=== PATIENT | female | born 1970 | race Two or more races ===

== ENCOUNTER 2025-01-17 18:40 | Inpatient (IN) | payer MEDICAID, OTHER ==
[~2025-01-17] VITALS: Ht 165.1 cm; Wt 80.0 kg
--- NOTE | 2025-01-17 19:03 | ED.PDOC ---
HPI Comments 54 y/o overweight F presents with c/o intermittent, left-sided chest pain for the past 3 days. Patient is a Faroese speaker and a poor historian. Chest pain is"sharp" and "pressure-like" in quality that occurs whenever taking a deep breath or bending forward. Patient states on pain also radiating to her left-arm. She endorses no recent stressors, strenuous activities, sick contact, travel, or additional significant history at time of initial assessment. Patient denies any shortness of breath, nausea, vomiting, fever, chills, or other associated symptoms or modifying factors at this time. Vitals: temperature of 97.9F, pulse rate of 83, respiratory rate of 16, blood pressure of 134/90, and a SpO2 of 95%RA Past medical history: HTN Past surgical history: cholecystectomy HPI: Poor Historian. REVIEW OF SYSTEMS: CONSTITUTIONAL: Denies acute: fever, diaphoresis, chills, generalized weakness. HEAD: Denies acute: headache, photophobia Eyes: Denies acute: Double vision, vision loss, eye pain, eye discharge. EARS: Denies acute: tinnitus, hearing loss, ear discharge, ear pain, THROAT: Denies acute: sore throat, swelling, difficulty swallowing , pain with swallowing, change in voice. NECK: Denies acute: neck pain, neck swelling, stiff neck. HEART: Denies acute : palpitations, LUNGS: Denies acute: SOB, wheezing, cough, hemoptysis ABDOMEN: Denies acute: abdominal pain, Nausea, Vomiting, diarrhea, melena , hematemesis, hematochezia SKIN: Denies acute: rash, redness, lesions, itchiness. EXTREMITIES: Denies acute: calf pain, numbness, tingling, weakness, denies pain in extremity. Denies acute: Low back pain. Neuro: Denies acute: focal neurological deficit, motor or sensory focal neurological deficit, tremors, seizure like activity, confusion, dizziness, change in mental status, loss of bowel or bladder function, cauda equina like symptoms. : Denies acute: dysuria, hematuria, flank pain, increase in urinary frequency. PSYCH: Denies acute: hallucination, suicidal ideation, homicidal ideation. FEMALE: Denies acute: abnormal vaginal bleeding, foul odor, unusual discharge. PHYSICAL EXAM: General: ----no----acute distress, awake and alert. Head: normocephalic, atraumatic. Neck: supple, trachea is midline, no swelling. Throat: Normal phonation. Eyes:, no erythema, no purulent discharge, no proptosis, no icterus. Heart: regular rate, regular rhythm, no significant murmur appreciated. Lungs: no apparent respiratory distress, Able to speak in full sentences. No wheezing, no rhonchi, no crackles. No stridors Clear to auscultation bilaterally. Abdomen: non tender to palpation, non distended, soft, no guarding, no rebound, + bowel sounds. Neuro: Awake, Alert, oriented to name, self, situation, follows commands GCS=15. Speech is normal. Skin: no petechia, no purpura, no cyanosis, non-pale, not jaundice. Lower extremities: --no - Pitting edema no deformity, no focal swelling, no calf TTP. Makes eye contact. moves all four extremities. Face: no apparent facial droop. Ambulating in the ED independently. ED COURSE: Chief Complaint: Chest Pain Time Seen by MD: 18:50 Primary Care Provider: unknown Reviewed Notes: Nurses Notes, Medications, Allergies Allergies: Coded Allergies: NO KNOWN ALLERGIES (Unverified , 01/17/25) Home Meds Reported Medications Losartan Potassium (Losartan Potassium) 25 Mg Tab, 1 TAB PO DAILY 01/18/25 Terbinafine HCl (Terbinafine Hydrochloride) 250 Mg Tab, 1 TAB PO DAILY 01/18/25 Rosuvastatin Calcium (Rosuvastatin Calcium) 10 Mg Tab, 1 TAB PO DAILY 01/18/25 Information Source: Patient Mode of Arrival: Ambulatory Past Medical History PAST MEDICAL HISTORY: HTN Surgical History: Cholecystectomy GLASSWARE VERIFIER History: Denies all GLASSWARE VERIFIER Hx Family History Family History: Unknown Social History Smoker: Non-Smoker Alcohol: Denies ETOH Use Drugs: Denies Drug Use Lives In: Home Was a procedure done? Was a procedure done?: No CP Differential Dx Differential Diagnosis: N/A Differential Diagnosis: Other (Ddx include but not limitied to gastritis, musculoskeletal pain, radiculopathy, atypical chest pain, dissection, aneurysm, ACS, unstable angina, hiatal hernia, GERD, anxiety, costochondritis, PE, pneumothroax, neoplasm, cardiac ischemia, drug abuse, anemia.) X-Ray, Labs, Meds, VS Vital Signs Date Time Temp Pulse Resp B/P (MAP) Pulse Ox O2 Delivery O2 Flow Rate FiO2 01/17/25 18:58 69 01/17/25 18:52 97.9 83 16 134/90 (105) 95 97.9 Lab Test 01/17/25 20:03 01/17/25 19:01 Range/Units Troponin I High Sensitivity < 3 L < 3 L </=34 ng/L White Blood Count 8.6 4.4-10.8 10^3/uL Red Blood Count 3.88 L 4.0-5.20 10^6/uL Hemoglobin 12.0 L 12.2-16.2 g/dL Hematocrit 35.2 L 36.0-46.0 % Mean Corpuscular Volume 90.7 80.0-100.0 fL Mean Corpuscular Hemoglobin 30.8 28.0-32.0 pg Mean Corpuscular Hemoglobin Concent 34.0 32.0-36.0 g/dL Red Cell Distribution Width 14.7 H 11.8-14.3 % Platelet Count 188 140-450 10^3/uL Mean Platelet Volume 7.6 6.9-10.8 fL Neutrophils (%) (Auto) 62.2 37.0-80.0 % Lymphocytes (%) (Auto) 30.4 10.0-50.0 % Monocytes (%) (Auto) 6.5 0.0-12.0 % Eosinophils (%) (Auto) 0.3 0.0-7.0 % Basophils (%) (Auto) 0.6 0.0-2.0 % Neutrophils # (Auto) 5.4 1.6-8.6 10 ^3/uL Lymphocytes # (Auto) 2.6 0.4-5.4 10 ^3/uL Monocytes # (Auto) 0.6 0-1.3 10 ^3/uL Eosinophils # (Auto) 0 0-0.8 10 ^3/uL Basophils # (Auto) 0 0-0.2 10 ^3/uL Nucleated Red Blood Cells 0.0 % Sodium Level 140 136-145 mmol/L Potassium Level 4.1 3.5-5.1 mmol/L Chloride Level 106 98-107 mmol/L Carbon Dioxide Level 29 20-31 mmol/L Anion Gap 5 5-15 Blood Urea Nitrogen 19 9-23 mg/dL Creatinine 0.84 0.550-1.02 mg/dL Glomerular Filtration Rate Calc 82 >90 mL/min BUN/Creatinine Ratio 22.6 H 10.0-20.0 Serum Glucose 85 74-106 mg/dL Calcium Level 9.2 8.7-10.4 mg/dL Total Bilirubin 0.5 0.2-1.0 mg/dL Aspartate Amino Transferase (AST) 23 13-40 U/L Alanine Aminotransferase (ALT) 36 7-40 U/L Alkaline Phosphatase 118 H 46-116 U/L Total Protein 6.2 5.7-8.2 g/dL Albumin 4.0 3.2-4.8 g/dL Triglycerides Level 95 < 150 mg/dL Cholesterol Level 130 < 200 mg/dL LDL Cholesterol 49 < 100 mg/dL HDL Cholesterol 61 H 40-59 mg/dL Thyroid Stimulating Hormone (TSH) 2.00 0.55-4.78 uIU/mL Current Medications Medications (Trade) Dose Ordered Sig/Dayne Route Start Time Stop Time Status Last Admin Aspirin (Ecotrin Enteric Coated Tablet) 325 mg ONCE ONCE PO 01/17/25 19:00 01/17/25 19:01 DC 01/17/25 22:30 PATIENT: YULIET BARONT: [id number]: [id number] : 1970 LOC: ER ROOM / BED: / AGE / SEX: 54 / F ADM STATUS: REG ER SERVICE 54 ORDERING PHYSICIAN: GOVIND SOL DO PROCEDURE(s): CXRP - CHEST PORTABLE REASON: cp ORDER NUMBER(s): [id number], ACCESSION NUMBER(s): [id number] CHEST RADIOGRAPH Indication: cp Technique: Single frontal view of the chest was obtained COMPARISON: None FINDINGS: Lines and Tubes: None Lungs: Clear Pleura: No effusion. No pneumothorax. Cardiomediastinal contours: Unremarkable Bones: Unremarkable IMPRESSION: 1. No acute disease. ATED BY: MARIEL BENITEZ MD DICTATED DATE/TIME: 01/17/251932 SIGNED BY: MARIEL BENITEZ MD SIGNED DATE/TIME: 01/17/251932 Time of 1ST Reevaluation: 19:20 Reevaluation 1ST: Unchanged Patient Education/Counseling: Diagnosis, Treatment Family Education/Counseling: No Family Present Comments Patient presented with the above HPI.---chest pain---workup was initiated. patient was found with the above mentioned diagnosis. the following medications were ordered: please refer to order lists of meds and tests obtained by myself Dr. Sol. Patient ED course and VS have been stabilized. Patient has been reassessed in the ED and remained in a stable condition. Pertinent incidental findings were discussed with the patient and/or family. Patient/family voices understanding and is agreeable with plan. Patient has been observed in the ED adequate length of time to insure imp rovement/stability. Escalation of care considered: Consideration of escalation to observation or admission Patient was ADMITTED to the medicine team for further evaluation and treatment of their presentation. All the reports of any imaging studies that were ordered by myself were reviewed by myself. Departure 1 Departure Time of Disposition: 20:13 Impression: Primary Impression: Chest pain Disposition: ADMITTED INPATIENT Admit to: Tele Condition: Guarded Discharged With: Self Critical Care Note Critical Care Time?: No Heart Score Heart Score: Heart Score Response (Comments) Value History Slightly Suspicious 0 EKG Normal 0 Age 45-64 1 Risk Factors 1 or 2 risk factors 1 Troponin Normal limit 0 Total 2 I personally scribed for SONAM GILL MD ([email or web address]) on 01/17/25 at 19:03. Electronically submitted by Rahul Clifford ([email or web address]). I personally scribed for GOVIND SOL DO ([email or web address]) on 01/17/25 at 22:59. Electronically submitted by Mike Ayers ([email or web address]). SONAM GILL MD Jan 17, 2025 19:03 GOVIND SOL DO Jan 17, 2025 19:08
[2025-01-17 19:16] LABS: Basophils # (auto) 0 10 ^3/uL (0-0.2); Basophils % (auto) 0.6 % (0.0-2.0); Eosinophils # (auto) 0 10 ^3/uL (0-0.8); Eosinophils % (auto) 0.3 % (0.0-7.0); Hematocrit 35.2 % (36.0-46.0); Lymphocytes # (auto) 2.6 10 ^3/uL (0.4-5.4); Lymphocytes % (auto) 30.4 % (10.0-50.0); Mean Corpuscular Hemoglobin 30.8 pg (28.0-32.0); Mean Corpuscular Volume 90.7 fL (80.0-100.0); Monocytes # (auto) 0.6 10 ^3/uL (0-1.3); Monocytes % (auto) 6.5 % (0.0-12.0); Neutrophils # (auto) 5.4 10 ^3/uL (1.6-8.6); Neutrophils % (auto) 62.2 % (37.0-80.0); Platelet Count (auto) 188 10^3/uL (140-450); Red Blood Cells 3.88 10^6/uL (4.0-5.20); Red Cell Distribution Width 14.7 % (11.8-14.3); White Blood Cell 8.6 10^3/uL (4.4-10.8)
--- NOTE | 2025-01-17 19:35 | DVH ---
CHEST RADIOGRAPH Indication: cp Technique: Single frontal view of the chest was obtained COMPARISON: None FINDINGS: Lines and Tubes: None Lungs: Clear Pleura: No effusion. No pneumothorax. Cardiomediastinal contours: Unremarkable Bones: Unremarkable IMPRESSION: 1. No acute disease.
[2025-01-17 19:37] LABS: Alanine Aminotransferase 36 U/L (7-40); Anion Gap 5 (5-15); Aspartate Aminotransferase 23 U/L (13-40); BUN/Creatinine Ratio 22.6 (10.0-20.0); Bilirubin, Total 0.5 mg/dL (0.2-1.0); Blood Urea Nitrogen 19 mg/dL (9-23); Calcium 9.2 mg/dL (8.7-10.4); Carbon Dioxide 29 mmol/L (20-31); Chloride 106 mmol/L (98-107); Glucose 85 mg/dL (74-106); Potassium 4.1 mmol/L (3.5-5.1); Sodium 140 mmol/L (136-145); Total Protein 6.2 g/dL (5.7-8.2)
[2025-01-17 19:38] LABS: Alkaline Phosphatase 118 U/L (46-116)
[2025-01-17] MEDS ORDERED: ONDANSETRON HCL 4 MG/2 ML VIAL IV PRN (22:00)
[2025-01-17] MEDS ORDERED: NITROGLYCERIN 0.4 MG SL TAB SL PRN (22:00)
[2025-01-17] MEDS ORDERED: MORPHINE SULFATE INJ 2 MG/ml SYRG IV PRN (22:00)
[2025-01-17 22:14] VITALS: PULSE 78; RESP 17; O2SAT 97
[2025-01-17 22:20] LABS: Triglycerides 95 mg/dL (< 150)
[2025-01-17 22:21] LABS: LDL Cholesterol 49 mg/dL (< 100)
[2025-01-17 22:22] LABS: Cholesterol 130 mg/dL (< 200)
[2025-01-17] MEDS: NITROGLYCERIN 0.4 MG SL TAB SL ONE (22:25)
[2025-01-17] MEDS: ATORVASTATIN 20 MG TAB PO SCH (22:30)
[2025-01-17] MEDS: ASPirin-EC 325mg tab PO ONE (22:30)
[2025-01-17 22:40] LABS: HDL Cholesterol 61 mg/dL (40-59)
[2025-01-18] VITALS (9 sets, daily range): BP systolic 114–119; BP diastolic 8–79; PULSE 60–77; RESP 16–20; TEMP 97.9–98.9; O2SAT 94–98
--- NOTE | 2025-01-18 00:15 | DVHHP2 ---
History of Present Illness Reason for Visit: Chest pain History of Present Illness 54-year-old female presents for evaluation of chest pain. Patient endorses a three day history of left-sided pressure-like nonradiating chest pain with associated shortness for breath. No nausea or vomiting. Past Medical History Hypertension and dyslipidemia Past Surgical History Cholecystectomy Family History Noncontributory Smoke: No ALCOHOL: none Drugs: None Lives: with Family Review of Systems Review of Systems Review of systems are currently negative otherwise addressed in HPI. Allergies: Coded Allergies: NO KNOWN ALLERGIES (Unverified , 01/17/25) Medications Current Medications Medications Dose Ordered Sig/Dayne Route Start Time Stop Time Status Last Admin Dose Admin Aspirin 81 mg DAILY PO 01/18/25 10:00 Losartan Potassium 25 mg DAILY PO 01/18/25 10:00 Atorvastatin Calcium 10 mg HS PO 01/17/25 22:00 01/17/25 22:30 10 MG Ondansetron HCl 4 mg Q4HP PRN IV 01/17/25 22:00 Acetaminophen 650 mg Q6HP PRN PO 01/17/25 22:00 Nitroglycerin 0.4 mg Q5MINP PRN SL 01/17/25 22:00 Morphine Sulfate 2 mg Q30M PRN IV 01/17/25 22:00 Exam Vital Signs Vital Signs Date Time Temp Pulse Resp B/P (MAP) Pulse Ox O2 Delivery O2 Flow Rate FiO2 01/17/25 22:14 78 17 97 Room Air* 0 21 01/17/25 22:12 98.6 148/88 (108) 98.6 Exam Gen: 54-year-old female in no apparent distress. Skin: Warm, dry, normal color and texture, no rash. HEENT: Normocephalic atraumatic, mucous membranes moist and pink. Neck: Cervical and supraclavicular nodes normal without enlargement, trachea is midline, thyroid gland is normal without masses. Pulmonary: Clear to auscultation and percussion bilaterally. Cardiac: Regular rate and rhythm. No murmur Abdomen: Soft, nontender, nondistended, bowel sounds present all 4 quadrants, no guarding, no rigidity, no organomegaly. Extremities: No cyanosis, clubbing, no edema Neuro: Cranial nerves II through XII grossly intact, normal affect and speech, no focal motor deficits. Labs/Xrays AGE / SEX: 54 / F ADM STATUS: REG ER SERVICE [id number] ORDERING PHYSICIAN: GOVIND SOL DO PROCEDURE(s): CXRP - CHEST PORTABLE REASON: cp ORDER NUMBER(s): [id number], ACCESSION NUMBER(s): [id number] CHEST RADIOGRAPH Indication: cp Technique: Single frontal view of the chest was obtained COMPARISON: None FINDINGS: Lines and Tubes: None Lungs: Clear Pleura: No effusion. No pneumothorax. Cardiomediastinal contours: Unremarkable Bones: Unremarkable IMPRESSION: 1. No acute disease. Labs Test 01/17/25 21:50 01/17/25 19:01 Range/Units Troponin I High Sensitivity < 3 L </=34 ng/L White Blood Count 8.6 4.4-10.8 10^3/uL Red Blood Count 3.88 L 4.0-5.20 10^6/uL Hemoglobin 12.0 L 12.2-16.2 g/dL Hematocrit 35.2 L 36.0-46.0 % Mean Corpuscular Volume 90.7 80.0-100.0 fL Mean Corpuscular Hemoglobin 30.8 28.0-32.0 pg Mean Corpuscular Hemoglobin Concent 34.0 32.0-36.0 g/dL Red Cell Distribution Width 14.7 H 11.8-14.3 % Platelet Count 188 140-450 10^3/uL Mean Platelet Volume 7.6 6.9-10.8 fL Neutrophils (%) (Auto) 62.2 37.0-80.0 % Lymphocytes (%) (Auto) 30.4 10.0-50.0 % Monocytes (%) (Auto) 6.5 0.0-12.0 % Eosinophils (%) (Auto) 0.3 0.0-7.0 % Basophils (%) (Auto) 0.6 0.0-2.0 % Neutrophils # (Auto) 5.4 1.6-8.6 10 ^3/uL Lymphocytes # (Auto) 2.6 0.4-5.4 10 ^3/uL Monocytes # (Auto) 0.6 0-1.3 10 ^3/uL Eosinophils # (Auto) 0 0-0.8 10 ^3/uL Basophils # (Auto) 0 0-0.2 10 ^3/uL Nucleated Red Blood Cells 0.0 % Sodium Level 140 136-145 mmol/L Potassium Level 4.1 3.5-5.1 mmol/L Chloride Level 106 98-107 mmol/L Carbon Dioxide Level 29 20-31 mmol/L Anion Gap 5 5-15 Blood Urea Nitrogen 19 9-23 mg/dL Creatinine 0.84 0.550-1.02 mg/dL Glomerular Filtration Rate Calc 82 >90 mL/min BUN/Creatinine Ratio 22.6 H 10.0-20.0 Serum Glucose 85 74-106 mg/dL Calcium Level 9.2 8.7-10.4 mg/dL Total Bilirubin 0.5 0.2-1.0 mg/dL Aspartate Amino Transferase (AST) 23 13-40 U/L Alanine Aminotransferase (ALT) 36 7-40 U/L Alkaline Phosphatase 118 H 46-116 U/L Total Protein 6.2 5.7-8.2 g/dL Albumin 4.0 3.2-4.8 g/dL Triglycerides Level 95 < 150 mg/dL Cholesterol Level 130 < 200 mg/dL LDL Cholesterol 49 < 100 mg/dL HDL Cholesterol 61 H 40-59 mg/dL Thyroid Stimulating Hormone (TSH) 2.00 0.55-4.78 uIU/mL Assessment/Plan Assessment/Plan Assessment Chest pain rule out ACS Hypertension Plan Admit the patient to telemetry to the hospitalist Echocardiogram pending Resume home medications Continue treatment per orders. Plan discussed with: Patient My Orders Orders - KENNETH TIMMONS Procedure Category Date Status Time Aspirin Tablet PHA 01/18/25 In Process 10:00 Losartan Tablet PHA 01/18/25 In Process (Cozaar Tablet) 10:00 Atorvastatin (Lipitor) PHA 01/17/25 In Process 22:00 Admit ADMIT 01/17/25 Transmitted 21:49 Ondansetron Hcl PHA 01/17/25 In Process (Zofran) 22:00 Cardiac DIET 01/18/25 Transmitted Diet-2gna,Lofat,Lochol Breakfast Echo 2d Mode Cardiac US 01/17/25 Logged DOP 21:49 Acetaminophen Tablet PHA 01/17/25 In Process (Tylenol Tablet) 22:00 Bedrest With Bathroom ZOE 01/17/25 In Process Privileg 21:49 Nitroglycerin PHA 01/17/25 In Process Sublingual (Ntrostat 22:00 Morphine Sulfate PHA 01/17/25 In Process Injection 22:00 Stat Ekg For Chest ZOE 01/17/25 In Process Pain 21:49 Notify Of Changes [facility] 01/17/25 In Process From Base 21:49 Inspector Screen Printing For ZOE 01/17/25 In Process 24 Hours 21:49 Emergency Dysrhythmia [facility] 01/17/25 In Process Protocol 21:49 Rhythm Strips Once [facility] 01/17/25 In Process Every Shift 21:49 Oxygen By Nasal RT 01/17/25 Transmitted Cannula 21:49 Date of Service: Jan 17, 2025 Billing Provider: KENNETH TIMMONS Common Visit Codes: [id number] INP/OBS CARE (HIGH) KENNETH TIMMONS Jan 18, 2025 00:15
[2025-01-18] MEDS ORDERED: TERB250T86 PO (01:33)
[2025-01-18] MEDS ORDERED: ROSU10TA64 PO (01:33)
[2025-01-18] MEDS ORDERED: LOS25T PO (01:33)
[2025-01-18] MEDS: ACETAMINOPHEN 325 MG TAB PO PRN (01:54)
--- NOTE | 2025-01-18 04:23 | ECG ---
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
[2025-01-18] MEDS: ASPirin 81 mg TAB PO SCH (08:44)
[2025-01-18] MEDS: LOSARTAN POTASSIUM 25 MG TAB PO SCH (08:46)
--- NOTE | 2025-01-18 08:58 | ECG ---
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
--- NOTE | 2025-01-18 17:57 | DVHPNRES ---
Progress Note Date Seen: Jan 18, 2025 Resident Creating Document: LEXUS CHANDLER RESIDENT Has the PT tested + for MRSA If YES, has PT been informed?: No Medical Necessity Reason Pt with a Central, PICC or Fol: No Subjective Review of Systems This is a 54-year-old female with past medical history of hypertension, dyslipidemia, prediabetes who presented to the ED with chief complaint of acute chest pain. The patient states that the pain started two days ago before coming to the ED and was characterized by sharp and pressure type of pain localized at the junction of the left shoulder with a left upper chest, patient also stated that was associated with shortness of breaths especially because taking deep breaths increased the pain. Patient also reports that deep palpation to the left upper chest reproduces the pain and makes it worse. The patient states that naproxen slightly improved the pain and she also reports mild numbness in the right upper extremity. Initial labs, CBC BNP were grossly unremarkable, troponins came back negative and EKG showed normal sinus rhythm with non specific ST segment elevation in inferior leads. Initial chest x-ray was grossly unremarkable showing no evidence of clear consolidations at this time. Patient was admitted for further assessment and management and rule out acute coronary syndrome. Patient seen and examined at bedside. Patient is alert and oriented in person, place and time. Patient still reports left-sided chest pain localized in the left upper chest in the junction with the left shoulder. Upon my examination there is reproducible pain that worse with deep palpation at the mentioned site. Patient also reports that taking deep breaths exacerbates the pain. Chest pain is most likely noncardiac and looks more like a musculoskeletal type of pain but since the patient reported this is the 1st time that she had this type of episode and has multiple comorbidities (hypertension, dyslipidemia, prediabetes) we will order a treadmill stress test to rule out possible ischemia. Echocardiogram is still pending. ROS Constitutional: Denies weight loss, fever and chills. HEENT: Denies changes in vision and hearing. Respiratory: Denies shortness of breath and cough Cardiovascular: Reports chest discomfort at the level of the left upper chest at the junction of the left shoulder. Denies palpitations GI: Denies abdominal pain, nausea, vomiting and diarrhea. : Denies dysuria and urinary frequency. Musculoskeletal: Denies myalgias and joint pain Skin: Denies rash and pruritus. Neurological: Denies dizziness, headache, vision or hearing problems Objective vital signs Vital Sign Date Time Temp Pulse Resp B/P (MAP) Pulse Ox O2 Delivery O2 Flow Rate FiO2 01/18/25 16:39 98.9 70 18 114/8 (43) 95 98.9 01/18/25 08:00 Room Air* 0 21 Total Intake and Output 01/17/25 01/17/25 01/18/25 15:00 23:00 07:00 Intake Total 200 ml Balance 200 ml medications Current Medications Medications Dose Ordered Sig/Dayen Route Start Time Stop Time Status Last Admin Dose Admin Aspirin 81 mg DAILY PO 01/18/25 10:00 01/18/25 08:44 81 MG Losartan Potassium 25 mg DAILY PO 01/18/25 10:00 01/18/25 08:46 25 MG Atorvastatin Calcium 10 mg HS PO 01/17/25 22:00 01/17/25 22:30 10 MG Ondansetron HCl 4 mg Q4HP PRN IV 01/17/25 22:00 Acetaminophen 650 mg Q6HP PRN PO 01/17/25 22:00 01/18/25 17:29 650 MG Nitroglycerin 0.4 mg Q5MINP PRN SL 01/17/25 22:00 Morphine Sulfate 2 mg Q30M PRN IV 01/17/25 22:00 Examination Physical Examination General: Patient alert and oriented in person, place and time. Patient following commands. HEENT: Normocephalic, atraumatic, moist mucous membranes Respiratory/pulmonary: Clear lungs bilaterally, no associated crackles or wheezes. Cardiovascular: Normal heart sounds S1 and S2 with no associated murmurs. There is mild tenderness to palpation at the left upper chest at the junction of the left shoulder. Abdomen: Abdomen nondistended, there is no pain to palpation in any of the abdominal quadrants, no palpable masses. Extremities: There is no peripheral edema present at the lower extremities. Peripheral Pulses: 3+ Radial (R). 3+ Radial (L). 3+ Dorsalis pedis (R). 3+ Dorsalis pedis(L) Skin: No rashes or pruritus, there is no sacral edema present at this time. Neurological: Intact cranial nerves with no focal neurologic deficits laboratory and microbiology Laboratory Tests 01/17/25 19:01 Test 01/17/25 19:01 Range/Units Serum Glucose 85 74-106 mg/dL Problem List/Assessment/Plan Problem List/Assessment/Plan Assessment/Plan Acute chest pain, likely musculoskeletal R/O Acute coronary syndrome -EKG showed normal sinus rhythm with no significant ST segment elevation in inferior leads -troponins came back negative -D-dimer is negative -ordered echocardiogram -consulted cardiology for possible treadmill stress test, if negative we could discharge home -continue aspirin 81 mg daily Primary hypertension -continue losartan 25 mg daily -monitor blood pressure closely Dyslipidemia -Ordered lipid panel which came back on normal range -continue atorvastatin 10 mg daily Prediabetes -ordered hemoglobin A1c -Monitor BG Goals of care discussed with the patient at bedside for >25min, FULL CODE Plan discussed with Dr. Hood Plan discussed with: Patient Date of Service: Jan 18, 2025 Billing Provider: ELISA HOOD MD Common Visit Codes: [id number] INP/OBS CARE(HIGH) LEXUS CHANDLER RESIDENT Jan 18, 2025 17:57 ELISA HOOD MD Jan 18, 2025 21:57
[2025-01-19] VITALS (7 sets, daily range): BP systolic 93–128; BP diastolic 47–76; PULSE 50–87; RESP 16–18; TEMP 36.7; O2SAT 95–100
[2025-01-19 06:20] LABS: Basophils # (auto) 0 10 ^3/uL (0-0.2); Basophils % (auto) 0.3 % (0.0-2.0); Eosinophils # (auto) 0 10 ^3/uL (0-0.8); Eosinophils % (auto) 0.7 % (0.0-7.0); Hematocrit 37.5 % (36.0-46.0); Hemoglobin 12.5 g/dL (12.2-16.2); Lymphocytes # (auto) 2.2 10 ^3/uL (0.4-5.4); Lymphocytes % (auto) 37.6 % (10.0-50.0); Mean Corpuscular Hemoglobin 30.4 pg (28.0-32.0); Mean Corpuscular Hgb Conc. 33.4 g/dL (32.0-36.0); Mean Corpuscular Volume 91.2 fL (80.0-100.0); Monocytes # (auto) 0.4 10 ^3/uL (0-1.3); Monocytes % (auto) 7.1 % (0.0-12.0); Neutrophils # (auto) 3.1 10 ^3/uL (1.6-8.6); Neutrophils % (auto) 54.3 % (37.0-80.0); Platelet Count (auto) 182 10^3/uL (140-450); Red Blood Cells 4.11 10^6/uL (4.0-5.20); Red Cell Distribution Width 14.6 % (11.8-14.3); White Blood Cell 5.8 10^3/uL (4.4-10.8)
[2025-01-19 06:22] LABS: Anion Gap 6 (5-15); Carbon Dioxide 27 mmol/L (20-31); Sodium 142 mmol/L (136-145)
[2025-01-19 06:23] LABS: Calcium 9.4 mg/dL (8.7-10.4)
[2025-01-19 06:26] LABS: Chloride 109 mmol/L (98-107)
[2025-01-19 06:28] LABS: BUN/Creatinine Ratio 19.4 (10.0-20.0); Blood Urea Nitrogen 13 mg/dL (9-23); Glucose 90 mg/dL (74-106)
--- NOTE | 2025-01-19 09:59 | DVHCARD ---
Cardiology Stress Test [place] Treadmill Stress Test [place] Referring MD: MD Chetan resident Protocol: [place] (with cardiolite) Reason for referral: Chest Pain Target heart Rate:@85%: 139 Percent MPHR: 164 METS: 7.0 Resting Heart rate: 74 Resting Blood Pressure: 144/91 Exercise Heart Rate: 164 Exercise Blood Pressure: 134/89 Reason for Termination of Test: Shortness of breath Baseline EKG: Normal sinus rhythm Stress EKG: Sinus tachycardia Functional Capacity: Mildly Decreased Heart Rate Response: Adequate Blood Pressure Response: Hypertensive Clinical response: Non-ischemic Arrhythmia?: No Cardiolite Injected?: Yes ST-T Changes: Non/Minimal Probability of Inducible [place]: Perfusion result pending Date of Service: Jan 19, 2025 Billing Provider: LALA KING Cardiology Common Codes: PROCEDURE ONLY Treadmill W/Cardiolite Nuclear: [id number], INTERP, RPT LALA KING Jan 19, 2025 09:59
--- NOTE | 2025-01-19 11:21 | DVHINCON2 ---
Date Seen: Jan 19, 2025 Referring Physician MD [place] resident Reason for Consultation Stress test History of Present Illness This is a 54-year-old female patient who presents to the emergency room with chief complaint of chest pain. The patient reports that the pain began one day prior to emergency room arrival at approximately 5:00 a.m. She describes the pain as unprovoked, intermittent, pressure-like in nature, located at left outer chest/axilla area. She also states that it was nonradiating. She denies any associated symptoms. She reports that the pain was worse upon deep inhalation. She states that she took naproxen at home, which seemed to help the pain but she decided to come to the emergency room to make sure the pain was not cardiac. Initial twelve lead electrocardiogram reveals normal sinus rhythm without any significant ST segment changes. Serial troponin levels have been negative. Significant past medical history includes hypertension, hyperlipidemia, prediabetes, and obesity. Past Medical History Past medical history reviewed. No other significant than mentioned above. Past Surgical History Cholecystectomy Family History: FH: stroke G8 FATHER Hypertension G8 FATHER Family History Family history reviewed. Social History Denies the use of tobacco, alcohol or illicit drugs. Allergies: Coded Allergies: NO KNOWN ALLERGIES (Unverified , 01/17/25) Home Meds Active Scripts Baclofen (Baclofen) 5 Mg Tab, 5 MG PO DAILY for 5 Days, #5 TAB Prov:LEXUS CHANDLER RESIDENT 01/19/25 Reported Medications Losartan Potassium (Losartan Potassium) 25 Mg Tab, 1 TAB PO DAILY 01/18/25 Terbinafine HCl (Terbinafine Hydrochloride) 250 Mg Tab, 1 TAB PO DAILY 01/18/25 Rosuvastatin Calcium (Rosuvastatin Calcium) 10 Mg Tab, 1 TAB PO DAILY 01/18/25 Home Meds Home medications reviewed. Current Medications Current Medications Medications (Trade) Dose Ordered Sig/Dayne Route PRN Reason Start Time Stop Time Status Last Admin Patient Own Medication 1 DAILY PO 01/19/25 10:00 Review of Systems Constitutional: No symptom reported Ears, Nose, & Throat: No symptom reported Eyes: No symptom reported Neurological: No symptoms reported Pulmonary/Respiratory: No symptoms reported Cardiovascular: Chest pain Gastrointestinal: No symptom reported Genitourinary: No symptom reported Musculoskeletal: No symptom reported Skin: No symptom reported Psychiatric: No symptom reported Endocrine: No symptom reported Hematologic/Lymphatic: No symptom reported Vital Signs Vital Signs Date Time Temp Pulse Resp B/P (MAP) Pulse Ox O2 Delivery O2 Flow Rate FiO2 01/19/25 10:19 117/72 01/19/25 08:45 98.6 68 18 98 98.6 01/18/25 20:00 Room Air* 0 21 Physical Exam General Appearance: Cooperative. Obese Pulmonary/Respiratory: Clear, bilateral breaths sounds. Cardiovascular/Chest: Regular rate and rhythm. Peripheral Pulses: 2+ Radial (R). 2+ Radial (L). 2+ Pedal (R). 2+ Pedal (L) Abdominal Exam: Normal bowel sounds. Ankle Exam: Negative ankle edema Lower extremities: Negative lower extremity edema Neuro/Mental Status: A/OX4, coherent. Thoughts/Psych: Normal thought pattern. Appropriate mood and affect. Good judgment and insight. Appearance: No acute distress. Skin Exam: Normal inspection. Normal color. Warm and dry. Labs/Diagnostic Data Labs Test 01/19/25 05:25 01/18/25 10:00 01/18/25 00:28 01/17/25 21:50 Range/Units White Blood Count 5.8 # 4.4-10.8 10^3/uL Red Blood Count 4.11 4.0-5.20 10^6/uL Hemoglobin 12.5 12.2-16.2 g/dL Hematocrit 37.5 36.0-46.0 % Mean Corpuscular Volume 91.2 80.0-100.0 fL Mean Corpuscular Hemoglobin 30.4 28.0-32.0 pg Mean Corpuscular Hemoglobin Concent 33.4 32.0-36.0 g/dL Red Cell Distribution Width 14.6 H 11.8-14.3 % Platelet Count 182 140-450 10^3/uL Mean Platelet Volume 7.6 6.9-10.8 fL Neutrophils (%) (Auto) 54.3 37.0-80.0 % Lymphocytes (%) (Auto) 37.6 10.0-50.0 % Monocytes (%) (Auto) 7.1 0.0-12.0 % Eosinophils (%) (Auto) 0.7 0.0-7.0 % Basophils (%) (Auto) 0.3 0.0-2.0 % Neutrophils # (Auto) 3.1 1.6-8.6 10 ^3/uL Lymphocytes # (Auto) 2.2 0.4-5.4 10 ^3/uL Monocytes # (Auto) 0.4 0-1.3 10 ^3/uL Eosinophils # (Auto) 0 0-0.8 10 ^3/uL Basophils # (Auto) 0 0-0.2 10 ^3/uL Nucleated Red Blood Cells 0.0 % Sodium Level 142 136-145 mmol/L Potassium Level 4.0 3.5-5.1 mmol/L Chloride Level 109 H 98-107 mmol/L Carbon Dioxide Level 27 20-31 mmol/L Anion Gap 6 5-15 Blood Urea Nitrogen 13 9-23 mg/dL Creatinine 0.67 0.550-1.02 mg/dL Glomerular Filtration Rate Calc 103 >90 mL/min BUN/Creatinine Ratio 19.4 10.0-20.0 Serum Glucose 90 74-106 mg/dL Calcium Level 9.4 8.7-10.4 mg/dL Hemoglobin A1c 5.4 <5.7 % A1C B-Type Natriuretic Peptide 33.84 0-100 pg/mL Vitamin B12 Level 1081 H 211-911 pg/mL Vitamin D 25-Hydroxy 44.8 30.0-100 ng/mL D-Dimer, Quantitative 0.26 0.0-0.49 mg/L FEU Troponin I High Sensitivity < 3 L </=34 ng/L Test 01/17/25 19:01 Range/Units Total Bilirubin 0.5 0.2-1.0 mg/dL Aspartate Amino Transferase (AST) 23 13-40 U/L Alanine Aminotransferase (ALT) 36 7-40 U/L Alkaline Phosphatase 118 H 46-116 U/L Total Protein 6.2 5.7-8.2 g/dL Albumin 4.0 3.2-4.8 g/dL Triglycerides Level 95 < 150 mg/dL Cholesterol Level 130 < 200 mg/dL LDL Cholesterol 49 < 100 mg/dL HDL Cholesterol 61 H 40-59 mg/dL Thyroid Stimulating Hormone (TSH) 2.00 0.55-4.78 uIU/mL Assessment Chest pain, ruled out coronary ischemia Mild tricuspid valve regurgitation Hypertension Dyslipidemia Obesity Plan/Recommendation We will continue with the following plan/recommendations (Dr. Souza): * Transthoracic echocardiogram reveals EF 60% with mild tricuspid regurgitation * Chest pain protocol * HEART score: 2 points (low score) * Blood pressure control and lipid-lowering agent * Nuclear scan as per primary care team: negative for ischemia Patient seen and examined at bedside with . Echocardiogram and nuclear stress test reviewed with MD. Nuclear stress test findings are negative for ischemia. There is no further inpatient cardiac workup indicated at this time. Thank you for allowing us to care for this patient. Please call with any questions or concerns. Critical care time spent: 42 minutes This medical document was created using an electronic medical record system with voice recognition software and computerized dictation system. Although this document has been carefully reviewed, there might still be some phonetic and typographical errors. Occasional wrong-word or ``sound-alike substitutions may have occurred due to the inherent limitations of voice recognition software. These areas are purely typographical due to imperfections of the software programs and do not reflect any compromise in the patient's medical care. Please read the chart carefully and recognize, using context, where these substitutions have occurred. Plan discussed with: Patient NYHA Physical activity limitations: NA Date of Service: Jan 19, 2025 Billing Provider: LALA KING Cardiology Common Codes: 20438-JHEBDKG INP/OBS CARE (High) Cardiology Consultation Codes: 42856-[id number] CONSULT <45MIN LALA KING Jan 19, 2025 11:21
--- NOTE | 2025-01-19 12:12 | DVHSR ---
APPROVED REPORT Exam: Nuclear Stress Test BMI: 0 Stress Test Details HR Max Heart Rate (APMHR): 164.962996 bpm Target HR (85% APMHR): 139.472071 bpm BP ECG Stress ECG Conclusion lvef 64% normal perfusion scan no severe ischemia noted NM EXAM: Myocardial Perfusion REST/STRESS Imaging Protocol: Rest Tc-99m/Stress Tc-99m 1 day Resting Data Rest SPECT myocardial perfusion imaging was performed in supine position 60 minutes following the int ravenous injection of 11 mCi of Tc-99m Sestamibi. Time of rest injection: 825 Date: 01/19/2025 Time of rest imagin Date: 01/19/2025 Administration Route: IV Administration Site: Right Hand Exercise Stress At peak stress, the patient was injected intravenously with 30mCi of Tc-99m Sestamibi. Time of stress injection: 946 Date: 01/19/2025 Time of stress imagin Date: 01/19/2025 Administration Route: IV Administration Site: Right Hand Heart Rate at time of stress injection: 164 bpm. Patient continued to exercise for 5 minute(s). Gated Stress SPECT was performed 60 minutes after stress injection. The images were gated to evaluate regional wall motion and calculate left ventricular ejection fracti on. Stress only was performed in the Supine position. Nuclear Conclusion Nuclear Findings: negative for ischemia lvef 64% normal perfusion scan no severe ischemia noted
--- NOTE | 2025-01-19 13:28 | DVHSR ---
APPROVED REPORT EXAM: Two-dimensional and M-mode echocardiogram with Doppler and color Doppler. Mitral Valve MitralMitral Stenosis E/A ratio0.02D MVAcm2 LEFT VENTRICLE The left ventricle is normal size. There is normal left ventricular wall thickness. The left ventricle is normal in structure and function. Left ventricle systolic function is normal. The Ejection Fraction is 55-60%. No regional wall motion abnormalities noted. RIGHT VENTRICLE The right ventricle is normal size. There is normal right ventricular wall thickness. The right ventricular systolic function is normal. ATRIA The left atrium size is normal. The right atrium size is normal. The interatrial septum is intact with no evidence for an atrial septal defect. MITRAL VALVE The mitral valve is normal in structure and function. There is no evidence of mitral valve prolapse. There is no mitral valve stenosis. There is no mitral valve regurgitation noted. PULMONIC VALVE The pulmonary valve is normal in structure and function. There is no pulmonic valvular regurgitation. There is no pulmonic valvular stenosis. TRICUSPID VALVE There is mild tricuspid regurgitation. There is no tricuspid valve prolapse or vegetation. There is no tricuspid valve stenosis. AORTIC VALVE The aortic valve is normal in structure and function. No aortic regurgitation is present. There is no aortic valvular stenosis. There is no aortic valvular vegetation. GREAT VESSELS The aortic root is normal in size. PERICARDIAL EFFUSION There is a no pericardial effusion. Conclusion There is normal left ventricular wall thickness. The left ventricle is normal in structure and function. Left ventricle systolic function is normal. The Ejection Fraction is 60%. There is mild tricuspid regurgitation. There is a no pericardial effusion.
[2025-01-19] MEDS ORDERED: BACL5TAB2 PO (14:30)
--- NOTE | 2025-01-19 14:35 | DVHDSRES ---
Discharge Summary Date of Admission Resident Creating Document: LEXUS CHANDLER RESIDENT Jan 17, 2025 at 21:49 Date of Discharge: Jan 19, 2025 Admitting Diagnosis Acute chest pain. Wounds: No wounds present at this time. Labs/Diagnostic Data: Laboratory Results Test 01/19/25 05:25 01/18/25 10:00 01/18/25 00:28 01/17/25 21:50 White Blood Count 5.8 10^3/uL (4.4-10.8) Red Blood Count 4.11 10^6/uL (4.0-5.20) Hemoglobin 12.5 g/dL (12.2-16.2) Hematocrit 37.5 % (36.0-46.0) Mean Corpuscular Volume 91.2 fL (80.0-100.0) Mean Corpuscular Hemoglobin 30.4 pg (28.0-32.0) Mean Corpuscular Hemoglobin Concent 33.4 g/dL (32.0-36.0) Red Cell Distribution Width 14.6 % (11.8-14.3) Platelet Count 182 10^3/uL (140-450) Mean Platelet Volume 7.6 fL (6.9-10.8) Neutrophils (%) (Auto) 54.3 % (37.0-80.0) Lymphocytes (%) (Auto) 37.6 % (10.0-50.0) Monocytes (%) (Auto) 7.1 % (0.0-12.0) Eosinophils (%) (Auto) 0.7 % (0.0-7.0) Basophils (%) (Auto) 0.3 % (0.0-2.0) Neutrophils # (Auto) 3.1 10 ^3/uL (1.6-8.6) Lymphocytes # (Auto) 2.2 10 ^3/uL (0.4-5.4) Monocytes # (Auto) 0.4 10 ^3/uL (0-1.3) Eosinophils # (Auto) 0 10 ^3/uL (0-0.8) Basophils # (Auto) 0 10 ^3/uL (0-0.2) Nucleated Red Blood Cells 0.0 % Sodium Level 142 mmol/L (136-145) Potassium Level 4.0 mmol/L (3.5-5.1) Chloride Level 109 mmol/L (98-107) Carbon Dioxide Level 27 mmol/L (20-31) Anion Gap 6 (5-15) Blood Urea Nitrogen 13 mg/dL (9-23) Creatinine 0.67 mg/dL (0.550-1.02) Glomerular Filtration Rate Calc 103 mL/min (>90) BUN/Creatinine Ratio 19.4 (10.0-20.0) Serum Glucose 90 mg/dL (74-106) Calcium Level 9.4 mg/dL (8.7-10.4) Hemoglobin A1c 5.4 % A1C (<5.7) B-Type Natriuretic Peptide 33.84 pg/mL (0-100) Vitamin B12 Level 1081 pg/mL (211-911) Vitamin D 25-Hydroxy 44.8 ng/mL (30.0-100) D-Dimer, Quantitative 0.26 mg/L FEU (0.0-0.49) Troponin I High Sensitivity < 3 ng/L (</=34) Test 01/17/25 19:01 Total Bilirubin 0.5 mg/dL (0.2-1.0) Aspartate Amino Transferase (AST) 23 U/L (13-40) Alanine Aminotransferase (ALT) 36 U/L (7-40) Alkaline Phosphatase 118 U/L (46-116) Total Protein 6.2 g/dL (5.7-8.2) Albumin 4.0 g/dL (3.2-4.8) Triglycerides Level 95 mg/dL (< 150) Cholesterol Level 130 mg/dL (< 200) LDL Cholesterol 49 mg/dL (< 100) HDL Cholesterol 61 mg/dL (40-59) Thyroid Stimulating Hormone (TSH) 2.00 uIU/mL (0.55-4.78) Other Laboratory Tests 01/19/25 05:25 Brief Hx & Hospital Course: This is a 54-year-old female with past medical history of hypertension, dyslipidemia, prediabetes who presented to the ED with chief complaint of acute chest pain. The patient states that the pain started two days ago before coming to the ED and was characterized by sharp and pressure type of pain localized at the junction of the left shoulder with a left upper chest, patient also stated that was associated with shortness of breaths especially because taking deep breaths increased the pain. Patient also reports that deep palpation to the left upper chest reproduces the pain and makes it worse. The patient states that naproxen slightly improved the pain and she also reports mild numbness in the right upper extremity. Initial labs, CBC BNP were grossly unremarkable, troponins came back negative and EKG showed normal sinus rhythm with non specific ST segment elevation in inferior leads. Initial chest x-ray was grossly unremarkable showing no evidence of clear consolidations at this time. Echocardiogram was performed showing an LVEF of 60% with mild tricuspid regurgitation but no major valves abnormalities and no pericardial effusion. Troponins were negative and EKG was grossly unremarkable. Patient underwent Cardiolite stress test which came back negative for ischemia with a normal LVEF. Patient was explained that the heart is fine at this time and that his chest pain might be related to musculoskeletal issues such as muscle distention or costochondritis. We will discharge the patient home with baclofen 5 mg daily for five additional days. Patient agrees and understands the plan. ROS Constitutional: Denies weight loss, fever and chills. HEENT: Denies changes in vision and hearing. Respiratory: Denies shortness of breath and cough Cardiovascular: Denies chest discomfort or palpitations GI: Denies abdominal pain, nausea, vomiting and diarrhea. : Denies dysuria and urinary frequency. Musculoskeletal: Denies myalgias and joint pain Skin: Denies rash and pruritus. Neurological: Denies dizziness, headache, vision or hearing problems Physical Examination General: Patient alert and oriented in person, place and time. Patient following commands. HEENT: Normocephalic, atraumatic, moist mucous membranes Respiratory/pulmonary: Clear lungs bilaterally, no associated crackles or wheezes. Cardiovascular: Normal heart sounds S1 and S2 with no associated murmurs Abdomen: Abdomen nondistended, there is no pain to palpation in any of the abdominal quadrants, no palpable masses. Extremities: There is no peripheral edema present at the lower extremities. Peripheral Pulses: 3+ Radial (R). 3+ Radial (L). 3+ Dorsalis pedis (R). 3+ Dorsalis pedis(L) Skin: No rashes or pruritus, there is no sacral edema present at this time. Neurological: Intact cranial nerves with no focal neurologic deficits Consults/Reason for consult Cardiology for stress test and R/O ACS Operations or Procedures CHEST RADIOGRAPH Indication: cp Technique: Single frontal view of the chest was obtained COMPARISON: None FINDINGS: Lines and Tubes: None Lungs: Clear Pleura: No effusion. No pneumothorax. Cardiomediastinal contours: Unremarkable Bones: Unremarkable IMPRESSION: 1. No acute disease. APPROVED REPORT Exam: Nuclear Stress Test BMI: 0 Stress Test Details HR Max Heart Rate (APMHR): 164.223787 bpm Target HR (85% APMHR): 139.045432 bpm BP ECG Stress ECG Conclusion lvef 64% normal perfusion scan no severe ischemia noted NM EXAM: Myocardial Perfusion REST/STRESS Imaging Protocol: Rest Tc-99m/Stress Tc-99m 1 day Resting Data Rest SPECT myocardial perfusion imaging was performed in supine position 60 minutes following the intravenous injection of 11 mCi of Tc-99m Sestamibi. Time of rest injection: 825 Date: 01/19/2025 Time of rest imagin Date: 01/19/2025 Administration Route: IV Administration Site: Right Hand Exercise Stress At peak stress, the patient was injected intravenously with 30mCi of Tc-99m Sestamibi. Time of stress injection: 946 Date: 01/19/2025 Time of stress imagin Date: 01/19/2025 Administration Route: IV Administration Site: Right Hand Heart Rate at time of stress injection: 164 bpm. Patient continued to exercise for 5 minute(s). Gated Stress SPECT was performed 60 minutes after stress injection. The images were gated to evaluate regional wall motion and calculate left ventricular ejection fraction. Stress only was performed in the Supine position. Nuclear Conclusion Nuclear Findings: negative for ischemia lvef 64% normal perfusion scan no severe ischemia noted APPROVED REPORT EXAM: Two-dimensional and M-mode echocardiogram with Doppler and color Doppler. Mitral Valve Mitral Mitral Stenosis E/A ratio 0.0 2D MVA cm2 LEFT VENTRICLE The left ventricle is normal size. There is normal left ventricular wall thickness. The left ventricle is normal in structure and function. Left ventricle systolic function is normal. The Ejection Fraction is 55-60%. No regional wall motion abnormalities noted. RIGHT VENTRICLE The right ventricle is normal size. There is normal right ventricular wall thickness. The right ventricular systolic function is normal. ATRIA The left atrium size is normal. The right atrium size is normal. The interatrial septum is intact with no evidence for an atrial septal defect. MITRAL VALVE The mitral valve is normal in structure and function. There is no evidence of mitral valve prolapse. There is no mitral valve stenosis. There is no mitral valve regurgitation noted. PULMONIC VALVE The pulmonary valve is normal in structure and function. There is no pulmonic valvular regurgitation. There is no pulmonic valvular stenosis. TRICUSPID VALVE There is mild tricuspid regurgitation. There is no tricuspid valve prolapse or vegetation. There is no tricuspid valve stenosis. AORTIC VALVE The aortic valve is normal in structure and function. No aortic regurgitation is present. There is no aortic valvular stenosis. There is no aortic valvular vegetation. GREAT VESSELS The aortic root is normal in size. PERICARDIAL EFFUSION There is a no pericardial effusion. Conclusion There is normal left ventricular wall thickness. The left ventricle is normal in structure and function. Left ventricle systolic function is normal. The Ejection Fraction is 60%. There is mild tricuspid regurgitation. There is a no pericardial effusion. Condition at Discharge: Stable Final Diagnosis/Problems List Acute chest pain, likely musculoskeletal Acute costochondritis Ruled out Acute coronary syndrome Primary hypertension Dyslipidemia Prediabetes Discharge Disposition: Home Discharge Instruct/Medications Diet: Regular Activity: No Restrictions, As Tolerated Follow Up/Referral: F/U with her PCP in 1 week Medications: Baclofen 5 mg daily for 5 days continue home medications Discharge Statement: "Patient was advised to return to the ER or call 911 if any headaches, dizziness, shortness of breath, chest pain, abdominal pain, bleeding, fevers, or worsening of medical condition. Patient was counseled about treatment plan, medications, possible side effects, patientverbalized understanding. All questions were answered to the best of my ability. This discharge took greater then 30 minutes in planning, reviewing documentation, counseling the patient, and discussing with other team members." ASSESSMENT ASSESSMENT Assessment Acute chest pain, likely musculoskeletal Acute costochondritis Ruled out Acute coronary syndrome Primary hypertension Dyslipidemia Prediabetes Date of Service: Jan 19, 2025 Billing Provider: ELISA CERRATO MD Common Visit Codes: 73502-JTZ/OBS DISCH DAY >30min LEXUS CHANDLER RESIDENT Jan 19, 2025 14:35 ELISA CERRATO MD Jan 19, 2025 21:11
== END 2025-01-19 19:40 | disposition home or self-care (01) | DRG 203 ==
LOC: ER 18:40 → OVERFLOW 21:49 → TELE-EAST 23:37
PROVIDERS: ADMIT Internal Medicine; ATTEND Internal Medicine
DX: M94.0 Chondrocostal junction syndrome [Tietze] (principal); E66.9 Obesity, unspecified; E78.5 Hyperlipidemia, unspecified; I10 Essential (primary) hypertension; R73.03 Prediabetes; I07.1 Rheumatic tricuspid insufficiency; Z82.3 Family history of stroke; Z82.49 Family history of ischemic heart disease and other diseases of the circulatory system; Z79.899 Other long term (current) drug therapy; Z90.49 Acquired absence of other specified parts of digestive tract; Z68.29 Body mass index [BMI] 29.0-29.9, adult
CPT/HCPCS: 36415; 71045; 78452; 80048; 80053; 80061; 82306; 82607; 83036; 83880; 84443; 84484; 85025; 85379; 93005; 93017; 93306; G0378

== ENCOUNTER 2025-09-16 17:55 | Emergency (ER) | payer MEDICAID ==
[~2025-09-16] VITALS: Ht 157.5 cm; Wt 69.7 kg
[~2025-09-16 17:55] MED LIST: BACL5TAB2 PO; LOS25T PO; ROSU10TA64 PO; TERB250T86 PO
[2025-09-16 18:30] VITALS: BP 152/95; PULSE 80; RESP 16; TEMP 98.5; O2SAT 98
[2025-09-16] MEDS ORDERED: MOXI0.5D9 OP (18:42)
--- NOTE | 2025-09-16 18:42 | ED.PDOC ---
Eye-HPI HPI Comments 54-year-old female presents to the ED chief complaint bilateral eye redness and itchiness x2 days. Patient states started in the right eye which is worse now it is in the left eye. She reports no known injury or foreign body feeling. She does complain of severe itchiness crusty drainage in the eyelids in the morning. Denies any vision changes fevers chills nausea or vomiting. Chief Complaint: Eye Problem Time Seen by MD: 18:26 Primary Care Provider: unknown Reviewed Notes: Nurses Notes, Medications, Allergies Allergies: Coded Allergies: NO KNOWN ALLERGIES (Unverified , 01/17/25) Home Meds Active Scripts Moxifloxacin Hydrochloride (Moxifloxacin) 0.5 % Loco, 1 DROP OP TID for 7 Days, #6 ML INSTILL 1 DROP BOTH EYES 3 TIMES DAILY TIMES 10 DAYS Prov:BOB RAMSEY STILL PHOTOGRAPHER 09/16/25 Baclofen (Baclofen) 5 Mg Tab, 5 MG PO DAILY for 5 Days, #5 TAB Prov:LEXUS CHANDLER RESIDENT 01/19/25 Reported Medications Losartan Potassium (Losartan Potassium) 25 Mg Tab, 1 TAB PO DAILY 01/18/25 Terbinafine HCl (Terbinafine Hydrochloride) 250 Mg Tab, 1 TAB PO DAILY 01/18/25 Rosuvastatin Calcium (Rosuvastatin Calcium) 10 Mg Tab, 1 TAB PO DAILY 01/18/25 Information Source: Patient Mode of Arrival: Ambulatory Past Medical History PAST MEDICAL HISTORY: HTN Surgical History: Cholecystectomy 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 Hx Family History Family History: Unknown Social History Smoker: Non-Smoker Alcohol: Denies ETOH Use Drugs: Denies Drug Use Lives In: Home All Other Systems: Reviewed and Negative (see hpi) Physical Exam General Appearance: No Apparent Distress, Normal HEENT: Pharynx Normal, TMs Normal, Other (Bilateral conjunctiva hyperemia with clear drainage no noted foreign body) Neck: Full Range of Motion, Non-Tender, Normal, Normal Inspection Respiratory: Chest Non-Tender, Lungs Clear, No Accessory Muscle Use, No Respiratory Distress, Normal Breath Sounds Cardiovascular: No Edema, No JVD, No Murmur, No Gallop, Normal Peripheral Pulses, Regular Rate/Rhythm Breast Exam: Deferred Gastrointestinal: No Organomegaly, Non Tender, No Pulsatile Mass, Normal Bowel Sounds, Soft Genitalia: Deferred Pelvic: Deferred Rectal: Deferred Extremities: No calf tenderness, Normal capillary refill, Normal inspection, Normal range of motion, Non-tender, No pedal edema Musculoskeletal : Apperance: Normal Neurologic: Alert, instructor warper II-XII nml as Tested, No Motor Deficits, Normal Affect, Normal Mood, No Sensory Deficits Cerebellar Function: Normal Reflexes: Normal Skin: Dry, Normal Color, Warm Lymphatic: No Adenopathy Was a procedure done? Was a procedure done?: No EENT DIFF Eye: Chalazion, Conjunctivitis, Allergic, Bacterial, Corneal Abrasion, Corneal Lacerations, Corneal Ulceration, Foreign Body-Conjunctiva, Foreign Body-Corneal, Foreign Body-Intraocular, Foreign Body-Lid, Glaucoma, Globe Rupture, Hordeolum (stye) X-Ray, Labs, Meds, VS Vital Signs Date Time Temp Pulse Resp B/P (MAP) Pulse Ox O2 Delivery O2 Flow Rate FiO2 09/16/25 18:30 98.5 80 16 152/95 (114) 98 98.5 09/16/25 18:30 80 16 98 Room Air 09/16/25 18:01 98.5 80 16 152/95 98 98.5 X-Ray, Labs, Meds, VS Comment Bilateral eyes flushed with normal saline patient tolerated well reports improvement and relief in symptoms. Likely bacteria script trial of antibiotic drops advised to take medication as prescribed side effects discussed. Advised to follow up with her PCP in 2-3 days as necessary. ER return precautions given patient indicates understanding agrees with discharge plan of care. Time of 1ST Reevaluation: 18:26 Reevaluation 1ST: Unchanged Reevaluation 2ND: Improved Patient Education/Counseling: Diagnosis, Treatment Family Education/Counseling: No Family Present SEPSIS Sepsis Screen Date sepsis recognized/suspect: Sep 16, 2025 Time Sepsis recognized/suspect: 1802 Recent Procedure: No On Antibiotic Therapy: No Respiratory Rate >20: No Heart Rate >90: No Temp<36 C (96.8 F) or >38.3 C: No SBP <90 or MAP <65 mmHG: No New Acute Mental Status Change: No Is the patient on CPAP, BIPAP,: No Vital Signs Date Time Temp Pulse Resp B/P (MAP) Pulse Ox O2 Delivery O2 Flow Rate FiO2 09/16/25 18:30 98.5 80 16 152/95 (114) 98 98.5 09/16/25 18:30 80 16 98 Room Air 09/16/25 18:01 98.5 80 16 152/95 98 98.5 Departure 1 Departure Time of Disposition: 18:39 Impression: Primary Impression: Conjunctivitis of both eyes Qualified Codes: H10.33 - Unspecified acute conjunctivitis, bilateral Disposition: 01 HOME / SELF CARE / HOMELESS Condition: Stable e-Prescriptions Moxifloxacin Hydrochloride (Moxifloxacin) 0.5 % Loco 1 DROP OP TID for 7 Days, #6 ML INSTILL 1 DROP BOTH EYES 3 TIMES DAILY TIMES 10 DAYS Prov: BOB RAMSEY 09/16/25 Discharged With: Self Critical Care Note Critical Care Time?: No Stability Stability form required: BOB Jimenez Sep 16, 2025 18:42
== END 2025-09-16 18:44 | disposition home or self-care (01) ==
LOC: ER 17:55
DX: H10.33 Unspecified acute conjunctivitis, bilateral (principal); I10 Essential (primary) hypertension; Z79.899 Other long term (current) drug therapy; Z90.49 Acquired absence of other specified parts of digestive tract